=== PATIENT | female | born 1970 | race Caucasian/White ===

== ENCOUNTER 2020-06-26 09:35 | Day surgery (SDC) | payer OTHER ==
[2020-06-26] MEDS ORDERED: diphenhydrAMINE 50 MG/ML VIAL ONE (09:54)
[2020-06-26] MEDS ORDERED: Acetaminophen 500 MG TAB ONE (09:54)
== END 2020-06-26 13:00 | disposition home or self-care (01) ==
LOC: CSHSDC/OP 09:35
PROVIDERS: ATTEND Family Medicine
DX: U07.1 COVID-19 (principal)
CPT/HCPCS: J1200; J7050; M0243; Q0243

== ENCOUNTER 2021-11-20 09:13 | Outpatient (CLI) | payer OTHER | END 2021-11-20 09:14 | disposition home or self-care (01) | LOC: CSHMAMMO 09:13 | PROVIDERS: ATTEND Obstetrics & Gynecology | DX: Z12.31 Encounter for screening mammogram for malignant neoplasm of breast (principal); N63.11 Unspecified lump in the right breast, upper outer quadrant; Z98.82 Breast implant status | CPT/HCPCS: 77063; 77067 ==

== ENCOUNTER 2022-02-12 16:52 | Inpatient (IN) | payer MEDICARE, OTHER ==
[2022-02-12 18:25] LABS: #Basophils 0.1 10x3/uL (0.0-0.2); #Eosinphils 0.2 10x3/uL (0.0-0.5); #Monocytes 0.6 10x3/uL (0.0-1.1); #Neutrophils 7.9 10x3/uL (1.5-8.4); %Basophils 0.6 % (0.0-2.0); %Eosinophils 2.1 % (0.0-6.0); %Lymphocytes 15.5 % (18.0-47.0); %Monocytes 5.9 % (0.0-10.0); %Neutrophils 75.7 % (40.0-75.0); Hemoglobin 13.8 g/dL (12.0-15.5); Mean Corpuscular HGB CONC 32.9 g/dL (32.0-36.0); Mean Corpuscular Hemoglobin 27.3 pg (27.0-33.0); Mean Corpuscular Volume 82.8 fl (81.6-98.3); Mean Platelet Volume 10.1 fl (7.4-10.4); Platelet Count 337 10x3/uL (150-450); RBC Distribution Width 14.6 % (11.5-14.5); Red Blood Cell (RBC) Count 5.06 10x6/uL (3.90-5.03); White Blood Cell (WBC) Count 10.5 10x3/uL (3.5-10.5)
[2022-02-12 18:39] LABS: ALT (SGPT) 427 U/L (8-55); AST (SGOT) 269 U/L (5-34); Albumin 4.4 g/dL (3.5-5.0); Alkaline Phosphatase 128 U/L (40-110); Anion Gap 16 mmol/L (10-20); BUN (Urea Nitrogen) 13 mg/dL (7.0-18.7); Bilirubin, Total 0.5 mg/dL (0.2-1.2); Calc. Creatinine Clearance 0 mL/min (70-130); Calcium 9.5 mg/dL (7.8-10.44); Carbon Dioxide 27 mmol/L (22-29); Chloride 98 mmol/L (98-107); Estimated GFR 72; Globulin 3.4 g/dL (2.4-3.5); Glucose 94 mg/dL (70-105); Lipase 38 U/L (8-78); Potassium 4.1 mmol/L (3.5-5.1); Protein, Total 7.8 g/dL (6.0-8.3); Sodium 137 mmol/L (136-145)
[2022-02-12 19:14] LABS: Bilirubin Neg (Negative); Blood, Urine Negative (Negative); Clarity Clear (Clear); Glucose, Urine (Dipstick) Normal (Negative); Ketone, Urine 5 mg/dL (Negative); Leukocyte Negative (Negative); Nitrite Negative (Negative); Protein, Urine (Dipstick) Negative (Neg-Trace); Urobilinogen Normal mg/dL (Less than 2); pH, Urine 6.5 (5.0-9.0)
[2022-02-12 19:16] LABS: Pregnancy Test - Urine (BHCG) Negative (Negative)
[2022-02-12 19:17] LABS: Pregu Control Background? CLEAR/WHITE (CLR/WHITE); Pregu Control Bar Appear? YES (CONTROL BAR)
[2022-02-12] MEDS ORDERED: Zolpidem Tartrate 5 MG TAB PO PRN (20:57)
[2022-02-12] MEDS ORDERED: Guaifenesin DM 100-10/5 ML UDCUP PO PRN (20:57)
[2022-02-12] MEDS ORDERED: Ondansetron PF 4 MG/2 ML Vial IVP PRN (20:57)
[2022-02-12] MEDS ORDERED: Senokot S 8.6-50 MG TAB PO PRN (20:57)
[2022-02-12] MEDS ORDERED: Calcium Carbonate 500 MG ChewTAB PO PRN (20:57)
[2022-02-12] MEDS ORDERED: Morphine 4 MG/ML VIAL SLOW IVP PRN (20:59)
[2022-02-12] MEDS ORDERED: Ketorolac Tromethamine 30 MG/ML VIAL ONE (22:09)
[2022-02-13 00:01] VITALS: BMI 35.2
[2022-02-13] MEDS ORDERED: Morphine 4 MG/ML VIAL SLOW IVP PRN (00:19)
[2022-02-13] MEDS ORDERED: Famotidine/PF 20 mg/2ml Vial SLOW IVP SCH (00:30)
[2022-02-13] MEDS ORDERED: Amlodipine 5 MG TAB PO SCH ×2 (00:30→09:00)
[2022-02-13] MEDS ORDERED: Lactated Ringer's 1,000 ML IV SCH (00:30)
[2022-02-13] MEDS ORDERED: Amlodipine 5 MG TAB ONE ×2 (00:45→09:11)
[2022-02-13] MEDS ORDERED: Famotidine/PF 20 mg/2ml Vial ONE (00:46)
[2022-02-13 01:43] LABS: SARS-CoV-2 NAA Rapid Test Not Detected (NotDetected)
[2022-02-13 03:41] VITALS: TEMP 98.1
[2022-02-13 04:01] LABS: #Eosinphils 0.4 10x3/uL (0.0-0.5); #Monocytes 0.5 10x3/uL (0.0-1.1); #Neutrophils 4.5 10x3/uL (1.5-8.4); %Basophils 0.6 % (0.0-2.0); %Eosinophils 5.7 % (0.0-6.0); %Lymphocytes 23.7 % (18.0-47.0); %Neutrophils 62.9 % (40.0-75.0); Hemoglobin 13.4 g/dL (12.0-15.5); Mean Corpuscular HGB CONC 32.9 g/dL (32.0-36.0); Mean Corpuscular Hemoglobin 27.5 pg (27.0-33.0); Mean Corpuscular Volume 83.4 fl (81.6-98.3); Mean Platelet Volume 10.1 fl (7.4-10.4); Platelet Count 277 10x3/uL (150-450); RBC Distribution Width 14.6 % (11.5-14.5); Red Blood Cell (RBC) Count 4.88 10x6/uL (3.90-5.03); White Blood Cell (WBC) Count 7.2 10x3/uL (3.5-10.5)
[2022-02-13 04:15] LABS: ALT (SGPT) 303 U/L (8-55); AST (SGOT) 126 U/L (5-34); Albumin 3.9 g/dL (3.5-5.0); Alkaline Phosphatase 113 U/L (40-110); Anion Gap 14 mmol/L (10-20); BUN (Urea Nitrogen) 12 mg/dL (7.0-18.7); Bilirubin, Total 0.5 mg/dL (0.2-1.2); Calc. Creatinine Clearance 131 mL/min (70-130); Calcium 8.8 mg/dL (7.8-10.44); Carbon Dioxide 26 mmol/L (22-29); Chloride 101 mmol/L (98-107); Cholesterol 201 mg/dl (< 200 Desired); Estimated GFR 86; Globulin 2.6 g/dL (2.4-3.5); Glucose 93 mg/dL (70-105); HDL Cholesterol 50 mg/dL (>60 Neg Risk); LDL Cholesterol, Calculated 131 mg/dL; Potassium 3.4 mmol/L (3.5-5.1); Protein, Total 6.5 g/dL (6.0-8.3); Sodium 138 mmol/L (136-145); Triglycerides 98 mg/dL (Less than 150)
[2022-02-13] MEDS ORDERED: Levothyroxine Sodium 88 MCG TAB PO SCH (06:00)
[2022-02-13] MEDS ORDERED: Ketorolac Tromethamine 30 MG/ML VIAL ONE (06:20)
[2022-02-13] MEDS ORDERED: Ketorolac Tromethamine 30 MG/ML VIAL IVP SCH (06:30)
[2022-02-13] MEDS ORDERED: Morphine 4 MG/ML VIAL ONE (09:11)
[2022-02-13] MEDS ORDERED: Ondansetron PF 4 MG/2 ML Vial ONE ×2 (09:11→13:51)
[2022-02-13 09:23] VITALS: BP 178/103
[2022-02-13] MEDS ORDERED: EPINEPHrine 1 MG/ML AMP ONE ×2 (12:56→13:50)
[2022-02-13] MEDS ORDERED: Bupivacaine PF 0.5% 30 ML VIAL ONE ×2 (12:57→13:50)
[2022-02-13] MEDS ORDERED: Iopamidol 30 ML ONE (12:57)
[2022-02-13] MEDS ORDERED: PROPOFOL 20 ML ONE (13:49)
[2022-02-13] MEDS ORDERED: Iopamidol-M 300 61% 15 ML VIAL ONE (13:50)
[2022-02-13] MEDS ORDERED: Piperacillin/Tazobactam 3.375 GM VIAL ONE ×2 (13:50)
[2022-02-13] MEDS ORDERED: Fentanyl 100 MCG/2 ML VIAL ONE (13:51)
[2022-02-13] MEDS ORDERED: Succinylcholine 200 MG/10 ml SYRINGE FS ONE (13:51)
[2022-02-13] MEDS ORDERED: Rocuronium Bromide 10 MG/ML (10ML VIAL) ONE (13:51)
[2022-02-13] MEDS ORDERED: Lidocaine 1% PF 5 ML VIAL ONE (13:51)
[2022-02-13] MEDS ORDERED: Midazolam HCl 2 mg/2 ml Vial ONE (13:56)
[2022-02-13] MEDS ORDERED: Midazolam HCl 5 mg/5 ml Vial ONE (13:56)
[2022-02-13] MEDS ORDERED: Dexamethasone 20 MG/5 ML VIAL ONE (14:17)
[2022-02-13] MEDS ORDERED: Glycopyrrolate 0.2 MG/ML 5 ML SYRINGE ONE (14:24)
[2022-02-13] MEDS ORDERED: ePHEDrine Sulfate 50 MG/10 ML VIAL ONE (14:26)
[2022-02-13] MEDS ORDERED: HYDROcodone/Acetaminophen 5/325 mg Tablet PO PRN (15:32)
[2022-02-14] MEDS ORDERED: Famotidine/PF 20 mg/2ml Vial SLOW IVP SCH (09:00)
== END 2022-02-13 17:00 | disposition home or self-care (01) | DRG 419 ==
LOC: CSHERS 16:52 → CSHERHOLD 23:48
PROVIDERS: ADMIT Student in an Organized Health Care Education/Training Program; ATTEND Nurse Practitioner Family
PROC: 0FT44ZZ Resection of Gallbladder, Percutaneous Endoscopic Approach (ICD-10-PCS; principal; 2022-02-13)
PROC: BF031ZZ Plain Radiography of Gallbladder and Bile Ducts using Low Osmolar Contrast (ICD-10-PCS; 2022-02-13)
DX: K80.31 Calculus of bile duct with cholangitis, unspecified, with obstruction (principal); I10 Essential (primary) hypertension; E03.9 Hypothyroidism, unspecified; K59.00 Constipation, unspecified; G89.29 Other chronic pain; K75.9 Inflammatory liver disease, unspecified; Z20.822 Contact with and (suspected) exposure to COVID-19
CPT/HCPCS: 36415; 47532; 74181; 76705; 80053; 80061; 81003; 81025; 83605; 83690; 85025; 88304; 96374; C1889; J0171; J1100; J1610; J1885; J1956; J2250; J2270; J2405; J2543; J2704; J3010; J7120; Q9967; S0020; S0028; U0002

== ENCOUNTER 2023-01-01 15:49 | Outpatient (CLI) | payer OTHER | END 2023-01-01 15:50 | disposition home or self-care (01) | LOC: CSHMAMMO 15:49 | PROVIDERS: ATTEND Obstetrics & Gynecology | DX: Z12.31 Encounter for screening mammogram for malignant neoplasm of breast (principal); Z98.890 Other specified postprocedural states | CPT/HCPCS: 77063; 77067 ==